=== PATIENT | male | born 1995 | race Caucasian/White ===

== ENCOUNTER → 2023-05-21 | Emergency (ER) | payer SELFPAY, OTHER ==
[~2023-05-21] MED LIST: LEVETIRACETAM 500 MG/5 ML VIAL IV ONE; NA CHLORIDE 0.9% 1,000 ML ONE; NA CHLORIDE 0.9% 100 ML ONE
--- NOTE | 2023-05-21 14:23 | RAD REPORT ---
EXAM DESCRIPTION: CT - Head Brain Wo Cont - 05/21/2023 2:09 pm CLINICAL HISTORY: SEIZURE Headache, drowsiness, seizure COMPARISON: No comparisons TECHNIQUE: All CT scans are performed using dose optimization technique as appropriate and may inclu de automated exposure control or mA/KV adjustment according to patient size. FINDINGS: No intracranial hemorrhage, hydrocephalus or extra-axial fluid collection.No areas of brai n edema or evidence of midline shift. Mild fluid is seen in the right mastoid air cell. The paranasal sinuses and mastoids otherwise clear. The calvarium is intact. IMPRESSION: No acute intracranial abnormality. Mild fluid right mastoid air cell.
[2023-05-21 14:37] LABS: Absolute Lymphocytes (CBC) 1.2 K/uL (0.7-4.9); Hematocrit 45.2 % (39.6-49.0); Lymphocytes % 9.6 % (15.3-44.8); MCV 85.7 fL (80-100); MPV 7.1 fL (7.6-11.3); Platelets 255 thou/uL (152-406); RBC Red Blood Cell Count 5.27 M/uL (4.33-5.43)
[2023-05-21 14:47] LABS: Protime INR 1.08
[2023-05-21 14:52] LABS: Albumin 3.7 g/dL (3.4-5.0); Bilirubin Direct 0.2 mg/dL (0-0.2); Bilirubin Indirect, Calculated 0.7 mg/dL (0.2-0.8); Bilirubin Total 0.9 mg/dL (0.2-1.0); Magnesium 2.2 mg/dL (1.6-2.4); Potassium 3.8 mEq/L (3.5-5.1); Protein, Total 7.4 g/dL (6.4-8.2); Troponin High Sensitivity 3.6 pg/mL (<58.9)
[2023-05-21 15:29] LABS: Urine Bacteria None Seen /HPF (<20); Urine Bilirubin NEGATIVE (Negative); Urine Blood 1+ (Negative); Urine Clarity Clear (Clear); Urine Color Light-Yellow (Yellow); Urine Glucose NEGATIVE (Negative); Urine Mucus Slight /HPF (None Seen); Urine Protein TRACE (Negative); Urine RBC <5 /HPF (None Seen); Urine Urobilinogen Normal (Normal); Urine WBC Clump Rare /HPF (None Seen); Urine pH 5.5 (5.0-7.0)
[2023-05-21 15:33] LABS: Barbiturates NEGATIVE (NEGATIVE); Benzodiazepines NEGATIVE (NEGATIVE); Cocaine NEGATIVE (NEGATIVE); METHAMPHETAM NEGATIVE (NEGATIVE); Methadone NEGATIVE (NEGATIVE); Opiates NEGATIVE (NEGATIVE); Phencyclidine NEGATIVE (NEGATIVE); THC Cannibis NEGATIVE (NEGATIVE)
--- NOTE | 2023-05-21 15:46 | ER ---
Nurse's Notes [facility] Name: Blaine Gar Age: 28 yrs Sex: Male : 1995 Arrival Date: 05/21/2023 Time: 13:57 Bed 7 Private MD: Diagnosis: Other seizures Presentation: 05/21 13:59 Chief complaint: Patient states: Seizure while standing at work, Hit hard hat. Seized ll1 about 2 minutes, then postictal for about 10 minutes. EMS states: HR 140's initially, other VS normal. 18 G R AC. Coronavirus screen: Client denies travel out of the [place] in the last 14 days. At this time, the client does not indicate any symptoms associated with coronavirus-19. Ebola Screen: Patient denies travel to an Ebola-affected area in the 21 days before illness onset. Initial Sepsis Screen: Does the patient meet any 2 criteria? No. Patient's initial sepsis screen is negative. Does the patient have a suspected source of infection? No. Patient's initial sepsis screen is negative. Risk Assessment: Do you want to hurt yourself or someone else? Patient reports no desire to harm self or others. Onset of symptoms was May 21, 2023. 13:59 Method Of Arrival: EMS: [facility] ll1 13:59 Acuity: JACK 3 ll1 Triage Assessment: 14:03 General: Appears in no apparent distress. Behavior is calm, cooperative, appropriate ll1 for age, Reports seizure activity FRUIT ROOM HAND for about 2 minutes. Historical: - Allergies: 14:02 No Known Allergies; ll1 - PMHx: 14:02 1 seizure; rhabdo; ll1 - PSHx: 14:02 None; ll1 - Immunization history:: Adult Immunizations up to date. - Social history:: Smoking status: Patient denies any tobacco usage or history of. Screenin:15 [facility] ED Fall Risk Assessment (Adult) Score/Fall Risk Level 0 - 2 = Low Risk nj1 Oriented to surroundings, Maintained a safe environment, Hourly rounding (assess needs \T\ fall precautionary measures) done. Abuse screen: Denies threats or abuse. Denies injuries from another. Nutritional screening: No deficits noted. Tuberculosis screening: No symptoms or risk factors identified. Assessment: 14:15 General: Appears in no apparent distress. comfortable, Behavior is calm, cooperative, nj appropriate for age. 14:15 Pain: Denies pain. Neuro: Level of Consciousness is awake, alert, obeys commands, nj1 Oriented to person, place, time, situation. Cardiovascular: Patient's skin is warm and dry. Respiratory: Airway is patent Respiratory effort is even, unlabored. 16:10 Reassessment: Patient appears in no apparent distress at this time. Patient and/or nj1 family updated on plan of care and expected duration. Pain level reassessed. Patient is alert, oriented x 3, equal unlabored respirations, skin warm/dry/pink. Patient denies pain at this time. Vital Signs: 13:59 BP 157 / 69; Pulse 82; Resp 17; Temp 98.5; Pulse Ox 100% on R/A; Weight 81.65 kg; ll1 Height 5 ft. 8 in. ; Pain 0/10; 15:09 BP 136 / 85; Pulse 78; Resp 15; Pulse Ox 100% ; ko1 16:00 BP 135 / 89; Pulse 74; Resp 16; Pulse Ox 99% ; Pain 0/10; nj1 13:59 Body Mass Index 27.37 (81.65 kg, 172.72 cm) ll1 13:59 Pain Scale: Adult ll1 16:00 Pain Scale: Adult [facility] ED Course: 13:59 Patient arrived in ED. ko1 14:00 Jimena Swan FNP-C [facility]. kb 14:00 Ryan Celis MD is Attending Physician. kb 14:00 aFtuma Dupont, ZEYNEP is Primary Nurse. nj1 14:02 Triage completed. ll1 14:03 Arm band placed on Patient placed in an exam room, on a stretcher. ll1 14:09 CT Head Brain wo Cont In Process Unspecified. EDMS 14:15 Patient has correct armband on for positive identification. Bed in low position. Call [facility] light in reach. Side rails up X 1. Provided Education on: call light, fall precautions. 15:09 Client placed on continuous cardiac and pulse oximetry monitoring. NIBP monitoring ko1 applied. machinist job setter on. Door closed. Noise minimized. Lights dimmed. Warm blanket given. 15:09 No provider procedures requiring assistance completed. ko1 15:10 Urinalysis w/ reflexes Sent. ko1 15:10 UDS Sent. ko1 16:10 IV discontinued, intact, bleeding controlled. nj1 Administered Medications: 14:45 Drug: Keppra IV 1000 mg IV at calculated rate once Route: IV; Rate: calculated rate; as6 Site: right forearm; 16:10 Follow up: Response: No adverse reaction nj1 14:45 Drug: NS 0.9% IV 1000 ml IV at 1000 ml once Route: IV; Rate: 1000 ml; Site: right as6 forearm; 16:10 Follow up: Response: No adverse reaction; IV Status: Completed infusion; IV Intake: nj1 1000ml Medication: 15:09 VIS not applicable for this client. ko1 Intake: 16:10 IV: 1000ml; Total: 1000ml. nj1 Outcome: 15:45 Discharge ordered by MD. suresh 16:10 Admitted to [facility] 16:10 Condition: stable 16:10 Discharge instructions given to patient, Instructed on discharge instructions, follow up and referral plans. safety practices, Demonstrated understanding of instructions, follow-up care, 16:10 Discharged to home ambulatory, [facility] 16:18 Patient left the ED. [facility] Signatures: Dispatcher [employer] EDMS Jimena Swan, SCIENCE LIAISON-C SCIENCE LIAISON-CkSophie Garcia, RN RN ll1 Kiko Desouza RN RN as6 Ailyn Lockwood RN RN ko1 Fatuma Dupont RN RN nj1
--- NOTE | 2023-05-21 15:46 | EDPHYS ---
Physician Documentation [facility] Name: Blaine Gar Age: 28 yrs Sex: Male : 1995 Arrival Date: 05/21/2023 Time: 13:57 Bed 7 Private MD: ED Physician Ryan Celis HPI: 05/21 14:27 This 28 yrs old Male presents to ER via EMS with complaints of seizure. kb 14:27 Pt is a 28 year old male who presents for seizure that occurred at work. States he has kb had one seizure in the past, about 1.5 years ago, but did not follow up with neurology so they don't know what the cause was. Today's seizure was witnessed by coworkers, lasted approx 2 minutes. Pt was walking and fell to the ground. Pt hit head, but had a hard hat on. Denies any injury or complaints at this time. Pt is awake, alert and oriented x4. . Historical: - Allergies: 14:02 No Known Allergies; ll1 - PMHx: 14:02 1 seizure; rhabdo; ll1 - PSHx: 14:02 None; ll1 - Immunization history:: Adult Immunizations up to date. - Social history:: Smoking status: Patient denies any tobacco usage or history of. ROS: 14:29 Constitutional: Negative for fever, chills, and weight loss, kb 14:29 Neuro: Positive for seizure activity, 14:29 All other systems are negative, Exam: 14:29 Constitutional: This is a well developed, well nourished patient who is awake, alert, kb and in no acute distress. Head/Face: Normocephalic, atraumatic. Eyes: Pupils equal round and reactive to light, extra-ocular motions intact. Lids and lashes normal. Conjunctiva and sclera are non-icteric and not injected. Cornea within normal limits. Periorbital areas with no swelling, redness, or edema. ENT: Moist Mucous membranes Cardiovascular: Regular rate Respiratory: Respirations even and unlabored. No increased work of breathing. Talking in full sentences Abdomen/GI: Soft, non-tender. No distention Skin: Warm, dry with normal turgor. Normal color. MS/ Extremity: Pulses equal, no cyanosis. Neurovascular intact. Full, normal range of motion. Neuro: Awake and alert, GCS 15, oriented to person, place, time, and situation. Moves all extremities. Normal gait. 14:29 Skin: Petechiae noted around eyes. 14:30 ECG was reviewed by the Attending Physician. kb Vital Signs: 13:59 BP 157 / 69; Pulse 82; Resp 17; Temp 98.5; Pulse Ox 100% on R/A; Weight 81.65 kg; ll1 Height 5 ft. 8 in. ; Pain 0/10; 15:09 BP 136 / 85; Pulse 78; Resp 15; Pulse Ox 100% ; ko1 16:00 BP 135 / 89; Pulse 74; Resp 16; Pulse Ox 99% ; Pain 0/10; nj1 13:59 Body Mass Index 27.37 (81.65 kg, 172.72 cm) ll1 13:59 Pain Scale: Adult ll1 16:00 Pain Scale: Adult nj1 MDM: 14:00 Patient medically screened. kb 14:29 Differential diagnosis: cardiac arrhythmia, seizure. Data reviewed: vital signs, nurses kb notes. Historians other than the Patient: EMS: [facility]. 15:45 Counseling: I had a detailed discussion with the patient and/or guardian regarding the kb historical points, exam findings, and any diagnostic results supporting the discharge/admit diagnosis, lab results, radiology results, the need for outpatient follow up, a neurologist, to return to the emergency department if symptoms worsen or persist or if there are any questions or concerns that arise at home. 05/21 14:00 Order name: Basic Metabolic Panel; Complete Time: 14:53 kb 05/21 14:00 Order name: CBC with Diff; Complete Time: 14:41 kb 05/21 14:00 Order name: Hepatic Function; Complete Time: 14:53 kb 05/21 14:00 Order name: Magnesium; Complete Time: 14:53 kb 05/21 14:00 Order name: Protime (+inr); Complete Time: 14:49 kb 05/21 14:00 Order name: Ptt, Activated; Complete Time: 14:49 kb 05/21 14:00 Order name: Troponin High Sensitivity; Complete Time: 14:53 kb 05/21 14:42 Order name: Urinalysis w/ reflexes; Complete Time: 15:41 kb 05/21 14:42 Order name: UDS; Complete Time: 15:41 kb 05/21 14:00 Order name: CT Head Brain wo Cont; Complete Time: 14:27 kb 05/21 14:00 Order name: EKG; Complete Time: 14:01 kb 05/21 14:00 Order name: Cardiac monitoring; Complete Time: 14:31 kb 05/21 14:00 Order name: EKG - Nurse/Tech; Complete Time: 14:31 kb 05/21 14:00 Order name: IV Saline Lock; Complete Time: 14:17 kb 05/21 14:00 Order name: Labs collected and sent; Complete Time: 14:17 kb 05/21 14:00 Order name: NPO; Complete Time: 14:17 kb 05/21 14:00 Order name: O2 Per Protocol; Complete Time: 14:17 kb 05/21 14:00 Order name: O2 Sat Monitoring; Complete Time: 14:17 kb EC:30 Rate is 75 beats/min. Rhythm is regular. QRS Teague is Normal. MA interval is normal at kb 158 msec. QRS interval is normal at 82 msec. QT interval is normal at 410 msec. Administered Medications: 14:45 Drug: Keppra IV 1000 mg IV at calculated rate once Route: IV; Rate: calculated rate; as6 Site: right forearm; 16:10 Follow up: Response: No adverse reaction nj1 14:45 Drug: NS 0.9% IV 1000 ml IV at 1000 ml once Route: IV; Rate: 1000 ml; Site: right as6 forearm; 16:10 Follow up: Response: No adverse reaction; IV Status: Completed infusion; IV Intake: nj1 1000ml Disposition: 16:20 Co-signature as Attending Physician, Ryan Celis MD I reviewed the patient's care rn provided by the Advanced Practice Provider and agree with the diagnosis and treatment plan. Disposition Summary: 05/21/23 15:45 Discharge Ordered Notes: Location: Home kb Condition: Stable kb Diagnosis - Other seizures kb Followup: kb - With: Emergency Department - When: As needed - Reason: Worsening of condition Followup: kb - With: Private Physician - When: 2 - 3 days - Reason: Recheck today's complaints, Continuance of care, Re-evaluation by your physician Discharge Instructions: - Discharge Summary Sheet kb - Seizure, Adult, [id number] kb Forms: - Medication Reconciliation Form kb - Thank You Letter kb - Antibiotic Education kb - Prescription Opioid Use kb - Patient Portal Instructions kb - Leadership Thank You Letter kb Signatures: Dispatcher [employer] Jimena Pugh, STORE STOCK ASSOCIATE-C STORE STOCK ASSOCIATE-Ckb Ryan Celis MD MD rn Sophie Gandhi RN RN ll1 Kiko Desouza RN RN as6 Fatuma Dupont RN nj1
[2023-05-21 18:56] VITALS: TEMP 98.5
[2023-05-21 19:09] VITALS: BP 135/89; O2SAT 99
--- NOTE | 2023-05-22 16:28 | EKG ---
Test Date: 2023-05-21 Test Time: 14:27:31 Correctional Supervisor Lieutenant: FORTINO MEASUREMENT RESULTS: Intervals: Rate: 75 SD: 158 QRSD: 82 QT: 368 QTc: 410 [place]: P: 60 SD: 158 QRS: 75 T: 59 INTERPRETIVE STATEMENTS: Normal sinus rhythm with sinus arrhythmia Normal ECG No previous ECG available for comparison Electronically Signed On 05-22-23 16:26:03 PUNCHBOARD ASSEMBLER by Kwasi De Dios
== END ==
LOC: ER 13:57
DX: R56.9 Unspecified convulsions (principal)
CPT/HCPCS: 36415; 70450; 80048; 80076; 80307; 81001; 83735; 84484; 85025; 85610; 85730; 93005; J1953; J7030